=== PATIENT | male | born 1960 | race African-American/Black ===

== ENCOUNTER 2021-06-03 18:04 | Inpatient (IN) ==
[2021-06-03 20:29] LABS: Basophils % 0.2 % (0.0-0.8); Eosinophils # 0.2 10*3/uL (0.0-0.87); Eosinophils % 1.8 % (0.00-10.9); Hematocrit 22.4 VOL% (42.0-52.0); Hemoglobin 6.5 GM/DL (14.0-18.0); Immature Granulocytes % 0.7 %; Immature Granulocytes Absolute 0.07 #; Lymphocytes % 11.1 % (21.2-54.2); Mean Corpuscular Volume 71.8 FL (87-102); Monocytes % 7.3 % (1.7-12.7); Neutrophils % 78.9 % (38.7-73.9); Platelet Count 329 T/CUMM (130-400); Red Blood Count 3.12 MC/CUMM (3.8-5.5); Red Cell Distribution Width 21.7 % (9.3-17.3); White Blood Count 9.4 T/CUMM (4-12)
[2021-06-03 21:00] LABS: Albumin 2.4 G/DL (3.4-5.0); Bilirubin,Total 0.9 MG/DL (0.20-1.00); Calcium 8.8 MG/DL (8.5-10.1); Osmolality,Calculated 280.7 MOS/KG (273-304); Potassium 4.5 MMOL/L (3.5-5.1); Total Protein 6.7 G/DL (6.4-8.2)
[2021-06-03] MEDS ORDERED: SODIUM CHLORIDE 0.9% 1,000 ML IV PRN (21:29)
[2021-06-03] MEDS ORDERED: GLUCAGON 1 MG VIAL IM PRN (21:53)
[2021-06-03] MEDS ORDERED: DOCUSATE SODIUM 100 MG CAPSULE PO PRN (21:53)
[2021-06-03] MEDS ORDERED: ONDANSETRON 4 MG/2 ML VIAL IV PRN (21:53)
[2021-06-03] MEDS ORDERED: DEXTROSE 50% 25 GM/50 ML VIAL IV PRN (21:53)
[2021-06-03] MEDS ORDERED: MORPHINE 2 MG/1 ML SYRINGE IV PRN (21:53)
[2021-06-03] MEDS ORDERED: ACETAMINOPHEN 325 MG TABLET PO PRN (21:53)
[2021-06-03 22:20] LABS: Folate 3.11 NG/ML (5.38-24.0); Vitamin B12 1997 PG/ML (211-911)
[2021-06-03 22:29] LABS: Basophils % 0.2 % (0.0-0.8); Eosinophils # 0.3 10*3/uL (0.0-0.87); Eosinophils % 2.5 % (0.00-10.9); Hematocrit 21.4 VOL% (42.0-52.0); Immature Granulocytes % 0.7 %; Immature Granulocytes Absolute 0.07 #; Lymphocytes # 1.1 10*3/uL (1.4-4.0); Mean Corpuscular HGB Conc 29.4 GM/DL (32-36); Mean Corpuscular Volume 71.3 FL (87-102); Mean Platelet Volume 12.1 FL (9.6-12.0); Monocytes % 8.3 % (1.7-12.7); Neutrophils % 77.3 % (38.7-73.9); Platelet Count 392 T/CUMM (130-400); Red Cell Distribution Width 21.4 % (9.3-17.3); White Blood Count 10.1 T/CUMM (4-12)
[2021-06-03 22:31] LABS: Hemoglobin 6.3 GM/DL (14.0-18.0)
[2021-06-03 23:11] LABS: Anisocytosis 1+; Hypochromasia 2+; Microcytosis 1+; Platelet Estimate Normal; Schistocytes Few
[2021-06-03 23:13] LABS: Helmet Cells Few; Poikilocytosis Few; Tear Drop Cells Few
[2021-06-03 23:28] LABS: Sedimentation Rate-Westergren 77 MM/HR (0-20)
[2021-06-04 06:13] LABS: Basophils % 0.3 % (0.0-0.8); Eosinophils # 0.2 10*3/uL (0.0-0.87); Hematocrit 28.1 VOL% (42.0-52.0); Immature Granulocytes Absolute 0.08 #; Lymphocytes % 13.1 % (21.2-54.2); Mean Corpuscular HGB Conc 30.6 GM/DL (32-36); Mean Corpuscular Volume 75.5 FL (87-102); Mean Platelet Volume 11.6 FL (9.6-12.0); Monocytes % 8.4 % (1.7-12.7); Neutrophils % 74.2 % (38.7-73.9); Platelet Count 355 T/CUMM (130-400); Red Cell Distribution Width 23.2 % (9.3-17.3); White Blood Count 7.7 T/CUMM (4-12)
[2021-06-04 06:16] LABS: Hemoglobin 8.6 GM/DL (14.0-18.0); Red Blood Count 3.72 MC/CUMM (3.8-5.5)
[2021-06-04 06:32] LABS: Calcium 8.7 MG/DL (8.5-10.1); Osmolality,Calculated 285.3 MOS/KG (273-304); Potassium 4.5 MMOL/L (3.5-5.1)
[2021-06-04 06:38] LABS: Hypochromasia 2+
[2021-06-04 06:39] LABS: Microcytosis 1+; Ovalocytes Slight; Platelet Estimate Normal
[2021-06-04] MEDS ORDERED: MAGNESIUM SULF RIDER 4 GM/100 ML PREMIX IV PRN (07:05)
[2021-06-04] MEDS ORDERED: MELATONIN 3 MG TABLET PO PRN (07:07)
[2021-06-04] MEDS ORDERED: ALBUTEROL/IPRATROPIUM 3 ML NEB RESP TX PRN (07:07)
[2021-06-04] MEDS: MAGNESIUM SULF RIDER 2 GM/50 ML PREMIX IV PRN (08:55)
[2021-06-04] MEDS: predniSONE 20 MG TABLET PO SCH (08:55)
[2021-06-04] MEDS: MULTIVITAMIN (CENTRUM) TABLET PO SCH (08:55)
[2021-06-04] MEDS: allopurinoL 100 MG TABLET PO SCH (08:56)
[2021-06-04] MEDS: amLODIPine 10 MG TABLET PO SCH (08:56)
[2021-06-04] MEDS ORDERED: IRON SUCROSE 200 MG in SODIUM CHLORIDE 0.9% 100 ML IV SCH (09:00)
[2021-06-04] MEDS ORDERED: FORMOTEROL INH SCH (09:00)
[2021-06-04] MEDS ORDERED: MOMETASONE INH SCH (09:00)
[2021-06-04] MEDS: FERRIC GLUCONATE COMPLEX 125 MG in SODIUM CHLORIDE 0.9% 100 ML IV SCH (10:55)
[2021-06-04 12:39] LABS: Hemoglobin A1 (Alkaline) 96.6 % (96.5-98.5); Hemoglobin A2 (Alkaline) 3.4 % (1.5-3.5)
[2021-06-04] MEDS ORDERED: MAGNESIUM HYDROXIDE SUSP 30 ML UDCUP PO PRN (13:24)
[2021-06-04] MEDS: DOXAZOSIN 4 MG TABLET PO SCH (20:54)
[2021-06-05 05:10] LABS: Basophils % 0.1 % (0.0-0.8); Eosinophils % 0.5 % (0.00-10.9); Hematocrit 26.9 VOL% (42.0-52.0); Hemoglobin 8.2 GM/DL (14.0-18.0); Immature Granulocytes % 0.5 %; Immature Granulocytes Absolute 0.04 #; Mean Corpuscular HGB Conc 30.5 GM/DL (32-36); Mean Corpuscular Volume 74.5 FL (87-102); Monocytes % 7.9 % (1.7-12.7); Platelet Count 326 T/CUMM (130-400); Red Blood Count 3.61 MC/CUMM (3.8-5.5); Red Cell Distribution Width 23.4 % (9.3-17.3); White Blood Count 7.4 T/CUMM (4-12)
[2021-06-05 05:34] LABS: Calcium 8.8 MG/DL (8.5-10.1); Hypochromasia 1+; Microcytosis 1+; Osmolality,Calculated 287.8 MOS/KG (273-304); Platelet Estimate Adequate; Potassium 3.9 MMOL/L (3.5-5.1)
[2021-06-05] MEDS: allopurinoL 100 MG TABLET PO SCH (09:38)
[2021-06-05] MEDS: amLODIPine 10 MG TABLET PO SCH (09:38)
[2021-06-05] MEDS: MULTIVITAMIN (CENTRUM) TABLET PO SCH (09:38)
[2021-06-05] MEDS: predniSONE 20 MG TABLET PO SCH (09:38)
[2021-06-05] MEDS: FERRIC GLUCONATE COMPLEX 125 MG in SODIUM CHLORIDE 0.9% 100 ML IV SCH (11:37)
[2021-06-05] MEDS ORDERED: GLUCAGON 1 MG VIAL IM PRN (12:45)
[2021-06-05] MEDS ORDERED: DEXTROSE 50% 25 GM/50 ML VIAL IV PRN (12:45)
[2021-06-05] MEDS: DOXAZOSIN 4 MG TABLET PO SCH (21:08)
[2021-06-06 05:09] LABS: Basophils % 0.1 % (0.0-0.8); Eosinophils % 0.4 % (0.00-10.9); Hemoglobin 8.5 GM/DL (14.0-18.0); Immature Granulocytes % 0.5 %; Immature Granulocytes Absolute 0.04 #; Lymphocytes # 1.3 10*3/uL (1.4-4.0); Lymphocytes % 15.9 % (21.2-54.2); Mean Corpuscular HGB Conc 30.4 GM/DL (32-36); Mean Corpuscular Volume 74.9 FL (87-102); Neutrophils % 76.1 % (38.7-73.9); Platelet Count 331 T/CUMM (130-400); Red Blood Count 3.74 MC/CUMM (3.8-5.5); Red Cell Distribution Width 23.7 % (9.3-17.3); White Blood Count 8.1 T/CUMM (4-12)
[2021-06-06 05:32] LABS: Calcium 8.9 MG/DL (8.5-10.1); Osmolality,Calculated 288.8 MOS/KG (273-304); Potassium 4.1 MMOL/L (3.5-5.1)
[2021-06-06] MEDS: predniSONE 20 MG TABLET PO SCH (09:17)
[2021-06-06] MEDS: allopurinoL 100 MG TABLET PO SCH (09:17)
[2021-06-06] MEDS: FERRIC GLUCONATE COMPLEX 125 MG in SODIUM CHLORIDE 0.9% 100 ML IV SCH (09:17)
[2021-06-06] MEDS: amLODIPine 10 MG TABLET PO SCH (09:18)
[2021-06-06] MEDS: MULTIVITAMIN (CENTRUM) TABLET PO SCH (09:18)
[2021-06-06] MEDS: DOXAZOSIN 4 MG TABLET PO SCH (21:22)
[2021-06-06] MEDS: FERROUS SULFATE 325 MG TABLET PO SCH (21:22)
[2021-06-07 05:35] LABS: Basophils % 0.2 % (0.0-0.8); Eosinophils # 0.1 10*3/uL (0.0-0.87); Eosinophils % 0.5 % (0.00-10.9); Hematocrit 30.8 VOL% (42.0-52.0); Hemoglobin 9.3 GM/DL (14.0-18.0); Immature Granulocytes % 0.6 %; Immature Granulocytes Absolute 0.06 #; Lymphocytes # 1.4 10*3/uL (1.4-4.0); Lymphocytes % 14.3 % (21.2-54.2); Mean Corpuscular HGB Conc 30.2 GM/DL (32-36); Mean Corpuscular Volume 74.9 FL (87-102); Monocytes % 6.3 % (1.7-12.7); Neutrophils % 78.1 % (38.7-73.9); Platelet Count 352 T/CUMM (130-400); Red Blood Count 4.11 MC/CUMM (3.8-5.5); Red Cell Distribution Width 23.9 % (9.3-17.3); White Blood Count 9.7 T/CUMM (4-12)
[2021-06-07 05:40] LABS: Osmolality,Calculated 288.8 MOS/KG (273-304); Potassium 4.1 MMOL/L (3.5-5.1)
[2021-06-07] MEDS: FERROUS SULFATE 325 MG TABLET PO SCH ×2 (10:52→20:34)
[2021-06-07] MEDS: amLODIPine 10 MG TABLET PO SCH (10:52)
[2021-06-07] MEDS: MULTIVITAMIN (CENTRUM) TABLET PO SCH (10:52)
[2021-06-07] MEDS: predniSONE 20 MG TABLET PO SCH (10:52)
[2021-06-07] MEDS: allopurinoL 100 MG TABLET PO SCH (10:52)
[2021-06-07] MEDS: MAGNESIUM SULF RIDER 2 GM/50 ML PREMIX IV PRN (18:03)
[2021-06-07] MEDS: DOXAZOSIN 4 MG TABLET PO SCH (20:34)
[2021-06-08 07:08] LABS: Basophils % 0.1 % (0.0-0.8); Eosinophils # 0.1 10*3/uL (0.0-0.87); Eosinophils % 0.6 % (0.00-10.9); Hematocrit 30.1 VOL% (42.0-52.0); Hemoglobin 8.8 GM/DL (14.0-18.0); Immature Granulocytes % 0.7 %; Immature Granulocytes Absolute 0.07 #; Lymphocytes # 1.4 10*3/uL (1.4-4.0); Lymphocytes % 13.6 % (21.2-54.2); Mean Corpuscular HGB Conc 29.2 GM/DL (32-36); Monocytes % 7.3 % (1.7-12.7); Neutrophils % 77.7 % (38.7-73.9); Platelet Count 335 T/CUMM (130-400); Red Blood Count 3.96 MC/CUMM (3.8-5.5); Red Cell Distribution Width 24.1 % (9.3-17.3)
[2021-06-08 07:29] LABS: Calcium 8.7 MG/DL (8.5-10.1)
[2021-06-08 08:31] LABS: Platelet Estimate Normal
[2021-06-08 08:32] LABS: Anisocytosis 1+; Burr Cells Few; Hypochromasia Slight; Ovalocytes Few; Poikilocytosis 1+; Target Cells Few; Tear Drop Cells Few
[2021-06-08 08:33] LABS: Giant Platelets Few
[2021-06-08] MEDS: FERROUS SULFATE 325 MG TABLET PO SCH ×2 (08:50→20:15)
[2021-06-08] MEDS: amLODIPine 10 MG TABLET PO SCH (08:50)
[2021-06-08] MEDS: MULTIVITAMIN (CENTRUM) TABLET PO SCH (08:50)
[2021-06-08] MEDS: allopurinoL 100 MG TABLET PO SCH (08:50)
[2021-06-08] MEDS: predniSONE 20 MG TABLET PO SCH (08:51)
[2021-06-08] MEDS: DOXAZOSIN 4 MG TABLET PO SCH (20:15)
[2021-06-09 06:15] LABS: Basophils % 0.1 % (0.0-0.8); Eosinophils # 0.1 10*3/uL (0.0-0.87); Eosinophils % 0.7 % (0.00-10.9); Hematocrit 28.5 VOL% (42.0-52.0); Hemoglobin 8.6 GM/DL (14.0-18.0); Immature Granulocytes Absolute 0.11 #; Lymphocytes # 1.6 10*3/uL (1.4-4.0); Lymphocytes % 14.8 % (21.2-54.2); Mean Corpuscular HGB Conc 30.2 GM/DL (32-36); Mean Corpuscular Volume 75.4 FL (87-102); Monocytes % 7.3 % (1.7-12.7); Neutrophils % 76.1 % (38.7-73.9); Platelet Count 316 T/CUMM (130-400); Red Blood Count 3.78 MC/CUMM (3.8-5.5); Red Cell Distribution Width 24.5 % (9.3-17.3); White Blood Count 10.7 T/CUMM (4-12)
[2021-06-09 06:46] LABS: Calcium 8.6 MG/DL (8.5-10.1); Osmolality,Calculated 291.7 MOS/KG (273-304); Potassium 4.1 MMOL/L (3.5-5.1)
[2021-06-09] MEDS: FERROUS SULFATE 325 MG TABLET PO SCH (10:16)
[2021-06-09] MEDS: predniSONE 20 MG TABLET PO SCH (10:16)
[2021-06-09] MEDS: allopurinoL 100 MG TABLET PO SCH (10:16)
[2021-06-09] MEDS: amLODIPine 10 MG TABLET PO SCH (10:16)
[2021-06-09] MEDS: MULTIVITAMIN (CENTRUM) TABLET PO SCH (10:16)
[2021-06-09 15:49] VITALS: BP 143/76
== END 2021-06-09 15:30 | DRG 811 ==
LOC: N.ED 18:04 → N.EDINP 21:53 → N.4E 06-04 01:35
PROVIDERS: ADMIT Internal Medicine; ATTEND Internal Medicine